=== PATIENT | female | born 1995 | race Two or more races ===

== ENCOUNTER 2016-09-10 11:03 | Emergency (ER) | payer OTHER ==
[~2016-09-10] VITALS: Ht 162.6 cm; Wt 72.0 kg
[~2016-09-10 11:03] MED LIST: CHROMAGEN,1 CAPSULE PO; IBUPROFEN800 MG PO; PRENATAL TABLE1 EAC3 PO; TYLENOL EXTRA500 MG PO
[2016-09-10 13:16] LABS: HEMATOCRIT 39.5 % (36.0-46.0); MCH 26.2 PG (29.0-34.0); MCHC 32.9 G/DL (30.0-36.0); MCV 79.6 FL (83-99); MEAN PLAT.VOLUME 11.6 uM^3 (9.5-12.4); PLATELET COUNT 176 K/uL (156-360); RBC DIS.WIDTH-CV 13.7 % (11.8-14.6); RBC DIS.WIDTH-SD 38.8 % (39-53); RED BLOOD COUNT 4.96 M/uL (3.80-5.20); WHITE BLOOD COUNT 9.9 K/uL (4.1-10.2)
[2016-09-10 13:27] LABS: CHLORIDE 105 mEq/L (99-109); POTASSIUM 3.8 mEq/L (3.7-5.4); SODIUM 139 mEq/L (136-147)
[2016-09-10 13:28] LABS: GLUCOSE 72 mg/dL (70-99)
[2016-09-10 13:29] LABS: D-DIMER ELISA < 0.15 mg/L FEU (< 0.57)
[2016-09-10 13:30] LABS: ANION GAP 10 MEQ/L (2-14)
[2016-09-10 13:32] LABS: GFR ESTIMATE (CALCULATED) > 59 mL/min/
[2016-09-10 13:33] LABS: UREA NITROGEN (BUN) 12 mg/dL (9-23)
[2016-09-10 13:35] LABS: TROP-I INTERPRETATION NEGATIVE; TROPONIN-I < 0.01 ng/mL (0.0-0.30)
[2016-09-10 13:41] LABS: QUANTITATIVE HCG < 4.0 MIU/ML
[2016-09-10] MEDS ORDERED: NAPROSYN500 MG PO (13:45)
[2016-09-10 14:02] VITALS: BP 102/70
== END 2016-09-10 14:03 | disposition home or self-care (01) ==
LOC: EME 11:03
PROVIDERS: Physician Assistant
DX: R09.1 Pleurisy (principal); R07.9 Chest pain, unspecified
CPT/HCPCS: 80048; 84484; 84702; 85027; 85379; 93005; 99281; 99284

== ENCOUNTER 2016-11-12 20:59 | Emergency (ER) | payer OTHER ==
[~2016-11-12] VITALS: Ht 162.6 cm; Wt 69.8 kg
[~2016-11-12 20:59] MED LIST changes: +NAPROSYN500 MG PO
[2016-11-12 21:48] LABS: HEMATOCRIT 35.6 % (36.0-46.0); MCH 26.9 PG (29.0-34.0); MCHC 33.4 G/DL (30.0-36.0); MCV 80.5 FL (83-99); MEAN PLAT.VOLUME 11.3 uM^3 (9.5-12.4); PLATELET COUNT 196 K/uL (156-360); RBC DIS.WIDTH-CV 13.2 % (11.8-14.6); RBC DIS.WIDTH-SD 38.7 % (39-53); RED BLOOD COUNT 4.42 M/uL (3.80-5.20); WHITE BLOOD COUNT 7.8 K/uL (4.1-10.2)
[2016-11-12 21:56] LABS: CHLORIDE 107 mEq/L (99-109); POTASSIUM 3.4 mEq/L (3.7-5.4); SODIUM 139 mEq/L (136-147)
[2016-11-12 21:58] LABS: GLUCOSE 84 mg/dL (70-99)
[2016-11-12 21:59] LABS: ANION GAP 10 MEQ/L (2-14)
[2016-11-12 22:01] LABS: GFR ESTIMATE (CALCULATED) > 59 mL/min/
[2016-11-12 22:02] LABS: UREA NITROGEN (BUN) 12 mg/dL (9-23)
[2016-11-12 22:36] LABS: ADD MIUA? YES; BILIRUBIN NEGATIVE; BLOOD LARGE; COLOR YELLOW ((YELLOW)); GLUCOSE (STRIP) NEGATIVE; KETONES NEGATIVE; LEUKOCYTES TRACE; NITRITE NEGATIVE; PROTEIN (STRIP) NEGATIVE; SPECIFIC GRAVITY 1.025 (1.000-1.030); UROBILINOGEN 0.2 MG/DL (0.2-1.0)
[2016-11-12 22:41] LABS: BACTERIA 1+ /HPF; BUDDING YEAST 1+; EPITHELIAL CELLS RARE /HPF; MUCUS 1+ /LPF; RED BLOOD CELLS 15-20 /HPF (0-5); UCUL ADDED? NO
[2016-11-13 02:34] VITALS: BP 124/76
== END 2016-11-13 02:35 | disposition home or self-care (01) ==
LOC: EME 20:59 → EXP 20:59
PROVIDERS: Physician Assistant
DX: O20.0 Threatened abortion (principal); Z3A.11 11 weeks gestation of pregnancy
CPT/HCPCS: 76801; 80048; 81003; 83030; 84702; 85027; 86850; 86900; 86901; 99281; 99283; J2790

== ENCOUNTER 2016-11-16 00:13 | Emergency (ER) | payer OTHER ==
[~2016-11-16] VITALS: Ht 162.6 cm; Wt 70.4 kg
[2016-11-16 00:52] LABS: ADD MIUA? YES; BILIRUBIN NEGATIVE; BLOOD MODERATE; COLOR YELLOW ((YELLOW)); GLUCOSE (STRIP) NEGATIVE; KETONES 5; LEUKOCYTES NEGATIVE; NITRITE NEGATIVE; PROTEIN (STRIP) NEGATIVE; UROBILINOGEN 0.2 MG/DL (0.2-1.0)
[2016-11-16 00:56] LABS: BACTERIA NONE SEEN /HPF; EPITHELIAL CELLS RARE /HPF; MUCUS 1+ /LPF; RED BLOOD CELLS TNTC /HPF (0-5); UCUL ADDED? NO; WHITE BLOOD CELLS 0-5 /HPF (0-5)
[2016-11-16 01:50] LABS: HEMATOCRIT 36.4 % (36.0-46.0); MCH 26.5 PG (29.0-34.0); MCV 80.4 FL (83-99); PLATELET COUNT 187 K/uL (156-360); RBC DIS.WIDTH-CV 13.2 % (11.8-14.6); RBC DIS.WIDTH-SD 38.2 % (39-53); RED BLOOD COUNT 4.53 M/uL (3.80-5.20)
[2016-11-16 02:11] LABS: CHLORIDE 107 mEq/L (99-109); POTASSIUM 3.3 mEq/L (3.7-5.4); SODIUM 138 mEq/L (136-147)
[2016-11-16 02:13] LABS: GLUCOSE 89 mg/dL (70-99)
[2016-11-16 02:14] LABS: ANION GAP 8 MEQ/L (2-14)
[2016-11-16 02:15] LABS: TOTAL BILIRUBIN 0.2 mg/dL (0.0-1.0)
[2016-11-16 02:16] LABS: ALKALINE PHOSPHATASE 61 IU/L (3-129)
[2016-11-16 02:17] LABS: GFR ESTIMATE (CALCULATED) > 59 mL/min/
[2016-11-16 02:18] LABS: UREA NITROGEN (BUN) 10 mg/dL (9-23)
[2016-11-16 02:31] LABS: QUANTITATIVE HCG 29252.4 MIU/ML
[2016-11-16] MEDS ORDERED: PERCOCET 5/31 TABLET PO (03:13)
[2016-11-16 04:16] VITALS: BP 120/60
== END 2016-11-16 04:18 | disposition home or self-care (01) ==
LOC: RME 00:13 → EME 00:13 → RME 04:18
PROVIDERS: Physician Assistant
PROC: 3E0234Z Introduction of Serum, Toxoid and Vaccine into Muscle, Percutaneous Approach (ICD-10-PCS; principal; 2016-11-16)
DX: O03.9 Complete or unspecified spontaneous abortion without complication (principal)
CPT/HCPCS: 76801; 80053; 81003; 83030; 84702; 85027; 85460; 86870; 86900; 86901; 88300; 99281; 99285; J2790; J3010

== ENCOUNTER 2017-05-14 08:02 | Emergency (ER) | payer OTHER ==
[~2017-05-14] VITALS: Ht 162.6 cm; Wt 70.2 kg
[~2017-05-14 08:02] MED LIST changes: +PERCOCET 5/31 TABLET PO
[2017-05-14 09:20] LABS: HEMATOCRIT 38.7 % (36.0-46.0); MCH 26.9 PG (29.0-34.0); MCHC 33.1 G/DL (30.0-36.0); MCV 81.3 FL (83-99); MEAN PLAT.VOLUME 11.1 uM^3 (9.5-12.4); PLATELET COUNT 186 K/uL (156-360); RBC DIS.WIDTH-CV 12.9 % (11.8-14.6); RBC DIS.WIDTH-SD 37.8 % (39-53); RED BLOOD COUNT 4.76 M/uL (3.80-5.20); WHITE BLOOD COUNT 6.7 K/uL (4.1-10.2)
[2017-05-14 09:29] LABS: ADD MIUA? YES; BILIRUBIN NEGATIVE; BLOOD NEGATIVE; COLOR YELLOW ((YELLOW)); GLUCOSE (STRIP) NEGATIVE; KETONES NEGATIVE; LEUKOCYTES NEGATIVE; NITRITE NEGATIVE; PROTEIN (STRIP) NEGATIVE; SPECIFIC GRAVITY 1.013 (1.000-1.030); UROBILINOGEN 0.2 MG/DL (0.2-1.0)
[2017-05-14 09:35] LABS: CHLORIDE 106 mEq/L (99-109); POTASSIUM 3.7 mEq/L (3.7-5.4); SODIUM 137 mEq/L (136-147)
[2017-05-14 09:37] LABS: GLUCOSE 83 mg/dL (70-99)
[2017-05-14 09:38] LABS: ANION GAP 7 MEQ/L (2-14)
[2017-05-14 09:39] LABS: TOTAL BILIRUBIN 0.6 mg/dL (0.0-1.0)
[2017-05-14 09:40] LABS: ALKALINE PHOSPHATASE 57 IU/L (3-129)
[2017-05-14 09:41] LABS: GFR ESTIMATE (CALCULATED) > 59 mL/min/
[2017-05-14 09:42] LABS: UREA NITROGEN (BUN) 8 mg/dL (9-23)
[2017-05-14 09:54] LABS: BACTERIA RARE /HPF; EPITHELIAL CELLS 2+ /HPF; MUCUS TRACE /LPF; RED BLOOD CELLS 0-5 /HPF (0-5); UCUL ADDED? NO; WHITE BLOOD CELLS 0-5 /HPF (0-5)
[2017-05-14 10:07] LABS: QUANTITATIVE HCG 63245.1 MIU/ML
[2017-05-14] MEDS ORDERED: ZOFRAN ODT4 MG PO (10:57)
[2017-05-14 11:06] VITALS: BP 108/65
== END 2017-05-14 11:07 | disposition home or self-care (01) ==
LOC: EME 08:02 → EXP 08:02
PROVIDERS: Nurse Practitioner Family
DX: O99.89 Other specified diseases and conditions complicating pregnancy, childbirth and the puerperium (principal); B34.9 Viral infection, unspecified; R10.13 Epigastric pain; Z3A.08 8 weeks gestation of pregnancy
CPT/HCPCS: 80053; 81003; 84702; 85027; 99281; 99284

== ENCOUNTER 2017-06-13 16:55 | Emergency (ER) | payer OTHER ==
[~2017-06-13] VITALS: Ht 162.6 cm; Wt 72.1 kg
[~2017-06-13 16:55] MED LIST changes: +ZOFRAN ODT4 MG PO
[2017-06-13 18:00] LABS: HEMATOCRIT 32.6 % (36.0-46.0); MCH 27.7 PG (29.0-34.0); MCHC 34.4 G/DL (30.0-36.0); MCV 80.7 FL (83-99); PLATELET COUNT 196 K/uL (156-360); RBC DIS.WIDTH-SD 38.3 % (39-53); RED BLOOD COUNT 4.04 M/uL (3.80-5.20); WHITE BLOOD COUNT 9.1 K/uL (4.1-10.2)
[2017-06-13 21:49] VITALS: BP 104/60
== END 2017-06-13 21:49 | disposition home or self-care (01) ==
LOC: EXP 16:55 → EME 16:55 → EXP 21:49
PROVIDERS: Physician Assistant
DX: O20.9 Hemorrhage in early pregnancy, unspecified (principal); O99.011 Anemia complicating pregnancy, first trimester; Z3A.12 12 weeks gestation of pregnancy
CPT/HCPCS: 76801; 84702; 85027; 86850; 86900; 86901; 99281; 99284; J2790

== ENCOUNTER 2017-06-22 02:49 | Emergency (ER) | payer OTHER ==
[~2017-06-22] VITALS: Ht 162.6 cm; Wt 71.3 kg
[2017-06-22 03:31] LABS: HEMATOCRIT 36.4 % (36.0-46.0); MCH 27.5 PG (29.0-34.0); MCHC 33.8 G/DL (30.0-36.0); MCV 81.4 FL (83-99); MEAN PLAT.VOLUME 11.1 uM^3 (9.5-12.4); PLATELET COUNT 215 K/uL (156-360); RBC DIS.WIDTH-SD 38.3 % (39-53); RED BLOOD COUNT 4.47 M/uL (3.80-5.20); WHITE BLOOD COUNT 11.9 K/uL (4.1-10.2)
[2017-06-22 06:06] VITALS: BP 115/80
== END 2017-06-22 06:08 | disposition home or self-care (01) ==
LOC: EME 02:49
DX: O20.0 Threatened abortion (principal); O34.31 Maternal care for cervical incompetence, first trimester; Z3A.13 13 weeks gestation of pregnancy
CPT/HCPCS: 76801; 81003; 84702; 85027; 99281; 99284

== ENCOUNTER 2017-06-23 05:08 | Day surgery (SDC) | payer OTHER ==
[~2017-06-23] VITALS: Ht 162.6 cm; Wt 71.1 kg
[2017-06-23 06:19] LABS: HEMATOCRIT 32.7 % (36.0-46.0); MCH 27.7 PG (29.0-34.0); MCHC 34.3 G/DL (30.0-36.0); MCV 80.7 FL (83-99); MEAN PLAT.VOLUME 10.6 uM^3 (9.5-12.4); PLATELET COUNT 188 K/uL (156-360); RBC DIS.WIDTH-SD 38.4 % (39-53); RED BLOOD COUNT 4.05 M/uL (3.80-5.20); WHITE BLOOD COUNT 12.3 K/uL (4.1-10.2)
[2017-06-23 06:26] LABS: CHLORIDE 105 mEq/L (99-109); POTASSIUM 3.5 mEq/L (3.7-5.4); SODIUM 137 mEq/L (136-147)
[2017-06-23 06:27] LABS: GLUCOSE 87 mg/dL (70-99)
[2017-06-23 06:29] LABS: ANION GAP 10 MEQ/L (2-14)
[2017-06-23 06:31] LABS: GFR ESTIMATE (CALCULATED) > 59 mL/min/
[2017-06-23 06:32] LABS: UREA NITROGEN (BUN) 10 mg/dL (9-23)
[2017-06-23 07:42] LABS: QUANTITATIVE HCG 60304.9 MIU/ML
[2017-06-23 16:45] VITALS: BP 102/59
[2017-06-23 17:35] VITALS: BP 106/57
== END 2017-06-23 17:45 | disposition home or self-care (01) ==
LOC: EME 05:08 → SDC 13:58
PROVIDERS: Physician Assistant
PROC: 10D17ZZ Extraction of Products of Conception, Retained, Via Natural or Artificial Opening (ICD-10-PCS; principal; 2017-06-23)
DX: O03.4 Incomplete spontaneous abortion without complication (principal); Z3A.12 12 weeks gestation of pregnancy
CPT/HCPCS: 76856; 80048; 84702; 85027; 85460; 86850; 86870; 86900; 86901; 86905; 86920; 88305; J0330; J1100; J2250; J2405; J3010; J7120

== ENCOUNTER 2018-01-29 23:31 | Emergency (ER) | payer OTHER ==
[~2018-01-29] VITALS: Ht 162.6 cm; Wt 88.9 kg
[2018-01-30] MEDS ORDERED: TYLENOL WITH C1 EACH PO (00:21)
[2018-01-30 01:15] VITALS: BP 146/95
== END 2018-01-30 01:16 | disposition home or self-care (01) ==
LOC: EME 23:31
DX: S60.221A Contusion of right hand, initial encounter (principal); S60.222A Contusion of left hand, initial encounter; V49.40XA Driver injured in collision with unspecified motor vehicles in traffic accident, initial encounter; W22.10XA Striking against or struck by unspecified automobile airbag, initial encounter; Y92.410 Unspecified street and highway as the place of occurrence of the external cause
CPT/HCPCS: 73130; 99281; 99283